=== PATIENT | female | born 1940 | race Caucasian/White ===

== ENCOUNTER → 2016-07-30 | Outpatient (CLI) | payer BC ==
[~2016-07-30] MED LIST: ATEN50TA8 PO; CLTP PO; ESCI1TAB10 PO; HYDC25 PO; PANT40TA PO; SIMV20TA2 PO
[2016-07-30 10:35] LABS: BASO % 0.4 %; BASO ABS # 0.03 K/uL (0-0.2); COMPLETE YES; EOS % 0.6 %; IG% 0.1 %; LYMPH % 26.6 %; LYMPH ABS # 2.06 K/uL (1.2-3.4); MEAN CORPUSCULAR HEMOGLOBIN 29.4 pg (25-34); MEAN CORPUSCULAR HGB CONC 34.1 g/dl (32-36); MEAN PLATELET VOLUME 9.4 fL (7.4-10.4); MONO % 7.9 %; NEUT % 64.4 %; PLATELET COUNT 248 K/uL (130-400); RED BLOOD COUNT 4.77 M/uL (4.2-5.4); WHITE BLOOD COUNT 7.75 K/uL (4.8-10.8)
[2016-07-30 11:05] LABS: ALT/SGPT 18 U/L (12-78); AST/SGOT 11 U/L (15-37); BLOOD UREA NITROGEN 16 mg/dl (7-18); BUN/CREATININE RATIO 24.4 (10-20); CARBON DIOXIDE 32 mmol/L (21-32); CHLORIDE 103 mmol/L (98-107); CREATININE 0.67 mg/dl (0.60-1.20); GLUCOSE 89 mg/dl (70-99); POTASSIUM 3.8 mmol/L (3.5-5.1); SODIUM 140 mmol/L (136-145)
[2016-07-30 11:14] LABS: ALB/GLOB RATIO 1.2 (0.9-2); ALKALINE PHOSPHATASE 80 U/L (45-117); CHOLESTEROL 184 mg/dl (0-200); CHOLESTEROL/HDL RATIO 3.1; HDL CHOLESTEROL 60 mg/dl; LDL CHOLESTEROL CALCULATED 90 mg/dl; TRIGLYCERIDES 168 mg/dl (0-150); VERY LOW DENSITY LIPOPROT CALC 34 mg/dl
== END | disposition home or self-care (01) ==
LOC: C.LAB1850 09:58
PROVIDERS: ATTEND Internal Medicine
DX: E78.5 Hyperlipidemia, unspecified (principal); M25.50 Pain in unspecified joint; Z85.43 Personal history of malignant neoplasm of ovary

== ENCOUNTER → 2016-10-05 | Outpatient (CLI) | payer BC ==
--- NOTE | 2016-10-05 12:30 | MAMMOGRAPHY REPORT ---
BILATERAL DIGITAL SCREENING MAMMOGRAM WITH CAD: 10/05/2016 CLINICAL HISTORY: Routine screening. Patient has no complaints. TECHNIQUE: Bilateral CC and MLO views were obtained. Current study was also evaluated with a Comput er Aided Detection (CAD) system. COMPARISON: Comparison is made to exams dated: 10/03/2015 mammogram, 09/28/2014 mammogram, 09/27/2013 ma mmogram, 09/19/2012 mammogram, 09/17/2011 mammogram, and 09/15/2010 mammogram - [facility]. BREAST COMPOSITION: The tissue of both breasts is heterogeneously dense, which may obscure small mas ses. FINDINGS: A linear scar marker overlies the left upper outer quadrant, there is expected architectura l distortion and [address] in the upper outer middle to posterior left breast, at the site of prior surgery. There is a stable oval circumscribed 3 x 2 cm mass in the lower outer anteri or right breast. A few benign rim calcifications and mild vascular calcifications bilaterally. No n ew suspicious mass, architectural distortion or cluster of microcalcifications is seen. IMPRESSION: ACR BI-RADS CATEGORY 1: NEGATIVE There is no mammographic evidence of malignancy. A 1 year screening mammogram is recommended. The pa tient will receive written notification of the results. Approximately 10% of breast cancers are not detected with mammography. A negative mammographic report should not delay biopsy if a clinically suggestive mass is present. Verena Kumari M.D. ay/:10/05/2016 10:20:57 Assistant Professor: Kirstin Restrepo, [facility] letter sent: Normal 1/2 BI-RADS Code: ACR BI-RADS Category 1: Negative
== END | disposition home or self-care (01) ==
LOC: C.MAMM 08:50
PROVIDERS: ATTEND Internal Medicine
DX: Z12.31 Encounter for screening mammogram for malignant neoplasm of breast (principal)

== ENCOUNTER → 2016-11-23 | Outpatient (CLI) | payer BC ==
[2016-11-23 15:09] LABS: BASO % 0.2 %; BASO ABS # 0.02 K/uL (0-0.2); COMPLETE YES; EOS % 2.8 %; HEMATOCRIT 39.8 % (37-47); IG% 0.2 %; LYMPH % 22.8 %; LYMPH ABS # 1.95 K/uL (1.2-3.4); MEAN CELL VOLUME 86.1 fL (80-100); MEAN CORPUSCULAR HEMOGLOBIN 30.3 pg (25-34); MEAN CORPUSCULAR HGB CONC 35.2 g/dl (32-36); MEAN PLATELET VOLUME 9.6 fL (7.4-10.4); MONO % 7.5 %; NEUT % 66.5 %; PLATELET COUNT 284 K/uL (130-400); RED BLOOD COUNT 4.62 M/uL (4.2-5.4); WHITE BLOOD COUNT 8.57 K/uL (4.8-10.8)
[2016-11-23 15:21] LABS: ALT/SGPT 18 U/L (12-78); BLOOD UREA NITROGEN 16 mg/dl (7-18); BUN/CREATININE RATIO 22.2 (10-20); C-REACTIVE PROTEIN < 0.29 mg/dl (0-0.29); CALCIUM 9.7 mg/dl (8.5-10.1); CARBON DIOXIDE 27 mmol/L (21-32); CHLORIDE 102 mmol/L (98-107); CREATININE 0.72 mg/dl (0.60-1.20); GLUCOSE 105 mg/dl (70-99); POTASSIUM 3.5 mmol/L (3.5-5.1); SODIUM 137 mmol/L (136-145)
[2016-11-23 15:24] LABS: ALB/GLOB RATIO 1.1 (0.9-2); ALKALINE PHOSPHATASE 77 U/L (45-117); AST/SGOT 16 U/L (15-37)
[2016-11-23 17:49] LABS: LYME DISEASE AB IGG NEG (NEG)
[2016-11-23 17:51] LABS: LYME DISEASE AB IGM NEG (NEG)
== END | disposition home or self-care (01) ==
LOC: C.LAB1850 14:04
PROVIDERS: ATTEND Internal Medicine
DX: M25.551 Pain in right hip (principal); R53.83 Other fatigue; M25.552 Pain in left hip

== ENCOUNTER → 2017-01-26 | Outpatient (CLI) | payer BC ==
[2017-01-26 16:35] LABS: HEMATOCRIT 39.1 % (37-47); MEAN CELL VOLUME 87.9 fL (80-100); MEAN CORPUSCULAR HEMOGLOBIN 29.7 pg (25-34); MEAN CORPUSCULAR HGB CONC 33.8 g/dl (32-36); PLATELET COUNT 311 K/uL (130-400); RED BLOOD COUNT 4.45 M/uL (4.2-5.4); WHITE BLOOD COUNT 7.38 K/uL (4.8-10.8)
[2017-01-26 16:57] LABS: BLOOD UREA NITROGEN 14 mg/dl (7-18); BUN/CREATININE RATIO 23.1 (10-20); CARBON DIOXIDE 28 mmol/L (21-32); CHLORIDE 101 mmol/L (98-107); GLUCOSE 103 mg/dl (70-99); MAGNESIUM 1.5 mg/dl (1.8-2.4); POTASSIUM 3.6 mmol/L (3.5-5.1); SODIUM 135 mmol/L (136-145)
== END | disposition home or self-care (01) ==
LOC: C.LAB1850 15:57
PROVIDERS: ATTEND Internal Medicine
DX: T14.8XXA Other injury of unspecified body region, initial encounter (principal); V89.2XXA Person injured in unspecified motor-vehicle accident, traffic, initial encounter

== ENCOUNTER → 2017-04-06 | Outpatient (CLI) | payer BC ==
--- NOTE | 2017-04-06 11:33 | DIAGNOSTIC IMAGING REPORT ---
PELVIS/BILATERAL HIP 2 VIEWS CLINICAL HISTORY: 77 years-old Female presenting with M25.551 M25.552 M54.5 R26.9. TECHNIQUE: Single frontal view of the pelvis and frontal and frog-leg lateral views of the bilateral hips were obtained. COMPARISON: None. FINDINGS: Sacroiliac joints and pubic symphysis congruent. Osteopenia likely present. Arcuate lines intact. Degenerative changes of the lower lumbar spine. Joint space loss, osteophytosis, and subchondral sclerosis and cystic change in the right humeral head are evidence of osteoarthritis of the right hip. Subchondral sclerosis and cystic change may also be present in the acetabulum. Left hip grossly normal appearing. No femoral neck fracture. The bony pelvis is intact. Surgical clips noted in the left hemipelvis. IMPRESSION: 1. Advanced degenerative changes of the right hip joint as above. No acute osseous injury. 2. Possible osteopenia. Electronically signed by: Georges Thompson M.D. 04/06/2017 11:31 AM Dictated Date/Time: 04/06/2017 11:29 AM
[2017-04-06 12:08] LABS: BASO % 0.3 %; BASO ABS # 0.03 K/uL (0-0.2); EOS % 0.7 %; EOS ABS # 0.06 K/uL (0-0.5); HEMOGLOBIN 15.3 g/dL (12.0-16.0); IG# 0.02 K/uL (0.00-0.02); LYMPH % 18.6 %; LYMPH ABS # 1.66 K/uL (1.2-3.4); MEAN CELL VOLUME 87.9 fL (80-100); MEAN CORPUSCULAR HEMOGLOBIN 29.9 pg (25-34); MONO ABS # 0.98 K/uL (0.11-0.59); NEUT % 69.2 %; NEUT ABS # 6.16 K/uL (1.4-6.5); PLATELET COUNT 265 K/uL (130-400); RED CELL DISTRIBUTION WIDTH CV 12.8 % (11.5-14.5); RED CELL DISTRIBUTION WIDTH SD 41.6 fL (36.4-46.3); WHITE BLOOD COUNT 8.91 K/uL (4.8-10.8)
[2017-04-06 12:32] LABS: ALBUMIN 3.8 gm/dl (3.4-5.0); ALT/SGPT 23 U/L (12-78); AST/SGOT 11 U/L (15-37); BLOOD UREA NITROGEN 15 mg/dl (7-18); CALCIUM 9.3 mg/dl (8.5-10.1); CARBON DIOXIDE 29 mmol/L (21-32); CREATININE 0.62 mg/dl (0.60-1.20); GLUCOSE 92 mg/dl (70-99); POTASSIUM 3.7 mmol/L (3.5-5.1); SODIUM 135 mmol/L (136-145)
[2017-04-06 12:37] LABS: ALKALINE PHOSPHATASE 92 U/L (45-117); CHOLESTEROL 202 mg/dl (0-200); LDL CHOLESTEROL CALCULATED 89 mg/dl; TOTAL PROTEIN 7.7 gm/dl (6.4-8.2); TRANSFERRIN 208 mg/dl (200-360)
[2017-04-08 21:38] LABS: CA 125 **TC 29256X 13 U/ML (<35)
== END | disposition home or self-care (01) ==
LOC: C.LAB1850 09:40
PROVIDERS: ATTEND Internal Medicine Rheumatology
DX: M25.551 Pain in right hip (principal); M25.552 Pain in left hip; M54.5 Low back pain; G89.29 Other chronic pain; R26.9 Unspecified abnormalities of gait and mobility; E78.5 Hyperlipidemia, unspecified; I10 Essential (primary) hypertension; Z85.43 Personal history of malignant neoplasm of ovary; M89.8X5 Other specified disorders of bone, thigh

== ENCOUNTER → 2017-04-09 | Outpatient (CLI) | payer BC ==
--- NOTE | 2017-04-09 12:25 | DIAGNOSTIC IMAGING REPORT ---
BONE SCAN WHOLE BODY CLINICAL HISTORY: R26.9 Gait [id number] Chronic low back painM25.551 bilateral hip pain COMPARISON STUDY: Conventional radiographic evaluation the hips dated to 618 the patient was injected with 26.6 mCi of technetium 99m MDP. Three-hour delayed whole body images were acquired. FINDINGS: There is a photopenic defect within the left knee consistent with prior surgery. There is increased activity within the proximal right shoulder. This may relate to a prior shoulder arthroplasty. There are foci of increased activity within the wrists, consistent with degenerative/arthritic etiology. There is a focus of increased activity within the right knee likely degenerative. There is mild increased activity within the left hip and moderate increased activity at the right hip. The findings are felt to be on a degenerative basis given the recent conventional radiographic findings. Heterogeneous activity within the lower lumbar spine is also likely degenerative/arthritic. There are foci of increased activity within the left second fifth and sixth costochondral junctions. There are foci of increased activity within the right third and fourth costochondral junctions. There are foci of increased activity within the left anterior third and fourth ribs. The distribution of this rib activity favors a posttraumatic etiology. There is intense focus of increased activity at the level of the sternomanubrial junction. Although nonspecific, this may be post traumatic. IMPRESSION: 1. Multiple foci of abnormal increased activity, the distribution of which favors a combination of degenerative and posttraumatic etiologies. 2. There is a nonspecific focus of intense increased activity involving the sternomanubrial junction. Correlation with any history of trauma to this region as well as correlation with clinical symptoms is recommended. If clinically, this is not consistent with a traumatic etiology, then CT scanning should be considered in follow-up. Electronically signed by: Sreedhar Mckoy M.D. 04/09/2017 12:24 PM Dictated Date/Time: 04/09/2017 12:18 PM
== END | disposition home or self-care (01) ==
LOC: C.NUCL 07:44
PROVIDERS: ATTEND Internal Medicine Rheumatology
DX: R26.9 Unspecified abnormalities of gait and mobility (principal); M54.5 Low back pain; M25.551 Pain in right hip; M25.552 Pain in left hip

== ENCOUNTER → 2017-05-03 | Outpatient (CLI) | payer BC ==
--- NOTE | 2017-05-03 08:22 | DIAGNOSTIC IMAGING REPORT ---
MRI LUMBAR SPINE W/O CONTRAST CLINICAL HISTORY: Back pain with lumbar radiculopathy. TECHNIQUE: Sagittal and axial T1, T2 and STIR images were obtained. COMPARISON STUDY: No previous studies for comparison. OBSERVATIONS: The vertebral bodies and posterior elements appear intact. There is no abnormal bony signal present to suggest a marrow replacement process. L1-2: There is a minimal circumferential disc bulge. There is no spinal or foraminal stenosis L2-3: No disc protrusions or extrusions. No evidence of spinal canal or neural foraminal compromise. L3-4: There is a mild circumferential disc bulge. There is mild facet joint arthropathy. There is no significant spinal or foraminal stenosis. L4-5: There is a grade 1 spondylolisthesis of L4 on L5. There is moderate facet joint arthropathy. There is minor left-sided foraminal narrowing. There is no significant spinal stenosis. L5-S1: No disc protrusions or extrusions. No evidence of spinal canal or neural foraminal compromise. The conus medullaris and cauda equina appear normal. Multiple sacral Tarlov cysts are visualized IMPRESSION: 1. Grade 1 spondylolisthesis of L4 and L5 2. Mild left-sided foraminal narrowing at the L4-5 level 3. Multiple sacral Tarlov cysts 4. Multilevel facet joint arthropathy Electronically signed by: Sreedhar Mckoy M.D. 05/03/2017 8:20 AM Dictated Date/Time: 05/03/2017 8:17 AM
== END | disposition home or self-care (01) ==
LOC: C.MRI 07:38
PROVIDERS: ATTEND Orthopaedic Surgery Orthopaedic Surgery of the Spine
DX: M48.062 Spinal stenosis, lumbar region with neurogenic claudication (principal); M43.16 Spondylolisthesis, lumbar region

== ENCOUNTER → 2017-07-15 | Outpatient (CLI) | payer BC ==
--- NOTE | 2017-07-15 12:24 | DIAGNOSTIC IMAGING REPORT ---
Jabier SAEED SHLDR,HIP,KNEE CLINICAL HISTORY: 77 years-old Female presenting with LT HIP DJD. COMPARISON: 04/06/2017. PROCEDURE: The risks, benefits, and alternatives to the procedure were discussed with the patient. Written informed consent was obtained. The patient was placed supine on the fluoroscopy table, and a left hip injection was performed under fluoroscopic guidance. The area was prepped and draped in the usual sterile fashion. The skin and soft tissues anesthetized with local 1% lidocaine. The left hip joint was accessed utilizing a 22-gauge needle. Approximately 1 mL of Optiray 300 was injected into the joint space under fluoroscopic guidance to confirm intra-articular positioning. Subsequently, a 10 mL mixture containing 8 mL of 0.5% bupivacaine and 2 mL of betamethasone was injected into the joint. The procedure was well tolerated without immediate complication. Fluoroscopy dosage (mGy): Not available. Fluoroscopy time: 15 seconds. Number of fluoroscopic spot images: 0. IMPRESSION: Successful injection of the left hip under fluoroscopic guidance. Electronically signed by: Georges Thompson M.D. 07/15/2017 12:23 PM Dictated Date/Time: 07/15/2017 12:22 PM
== END | disposition home or self-care (01) ==
LOC: C.RADBC 10:46
PROVIDERS: ATTEND Orthopaedic Surgery Sports Medicine
DX: M16.12 Unilateral primary osteoarthritis, left hip (principal)

== ENCOUNTER → 2017-09-23 | Outpatient (CLI) | payer BC ==
[~2017-09-23] MED LIST changes: +CARB1SOL OPB; +CLB/200 PO; -CLTP PO; -HYDC25 PO; +HYDR12.55 PO; -SIMV20TA2 PO; +VITAMIN B12 PO; +VITAMIN D PO
--- NOTE | 2017-09-23 11:17 | DIAGNOSTIC IMAGING REPORT ---
CHEST 2 VIEWS ROUTINE CLINICAL HISTORY: PAT preoperative evaluation COMPARISON STUDY: 08/11/2013 FINDINGS: The bones soft tissues and hemidiaphragms are normal. The cardiomediastinal silhouette is normal. The lungs are clear. The pulmonary vasculature is normal. IMPRESSION: Negative chest. The above report was generated using voice recognition software. It may contain grammatical, syntax or spelling errors. Electronically signed by: Michael Stokes M.D. 09/23/2017 11:15 AM Dictated Date/Time: 09/23/2017 11:15 AM
[2017-09-23 11:23] LABS: BASO % 0.5 %; BASO ABS # 0.03 K/uL (0-0.2); EOS % 0.8 %; EOS ABS # 0.05 K/uL (0-0.5); HEMATOCRIT 40.8 % (37-47); HEMOGLOBIN 13.8 g/dL (12.0-16.0); IG# 0.01 K/uL (0.00-0.02); LYMPH % 27.2 %; LYMPH ABS # 1.61 K/uL (1.2-3.4); MEAN CELL VOLUME 86.8 fL (80-100); MEAN CORPUSCULAR HEMOGLOBIN 29.4 pg (25-34); MEAN CORPUSCULAR HGB CONC 33.8 g/dl (32-36); MEAN PLATELET VOLUME 9.6 fL (7.4-10.4); MONO % 9.5 %; MONO ABS # 0.56 K/uL (0.11-0.59); NEUT % 61.8 %; NEUT ABS # 3.65 K/uL (1.4-6.5); PLATELET COUNT 266 K/uL (130-400); RED CELL DISTRIBUTION WIDTH CV 12.4 % (11.5-14.5); RED CELL DISTRIBUTION WIDTH SD 39.9 fL (36.4-46.3); WHITE BLOOD COUNT 5.91 K/uL (4.8-10.8)
[2017-09-23 11:25] LABS: BLOOD UREA NITROGEN 16 mg/dl (7-18); CARBON DIOXIDE 27 mmol/L (21-32); CREATININE 0.65 mg/dl (0.60-1.20); GLUCOSE 95 mg/dl (70-99); POTASSIUM 3.9 mmol/L (3.5-5.1); SODIUM 135 mmol/L (136-145)
[2017-09-23 11:30] LABS: PTT PATIENT 27.5 SECONDS (21.0-31.0)
== END | disposition home or self-care (01) ==
LOC: C.CPL 10:03
PROVIDERS: ATTEND Orthopaedic Surgery Sports Medicine
DX: Z01.810 Encounter for preprocedural cardiovascular examination (principal); Z01.811 Encounter for preprocedural respiratory examination; Z01.812 Encounter for preprocedural laboratory examination

== ENCOUNTER → 2017-10-06 | Outpatient (CLI) | payer BC ==
[~2017-10-06] MED LIST changes: +ACET-24 PO; +ASPI-461 PO; +ULT50X PO
--- NOTE | 2017-10-06 13:38 | MAMMOGRAPHY REPORT ---
BILATERAL DIGITAL SCREENING MAMMOGRAM TOMOSYNTHESIS WITH CAD: 10/06/2017 CLINICAL HISTORY: Routine screening. Patient has no complaints. TECHNIQUE: The study was acquired using full field digital technology and interpreted from soft copy. Breast tomosynthesis in addition to standard 2D mammography was performed. Current study was also ev aluated with a Computer Aided Detection (CAD) system. COMPARISON: Comparison is made to exams dated: 10/05/2016 mammogram, 10/03/2015 mammogram, 09/28/2014 moris mogram, 09/27/2013 mammogram, 09/19/2012 mammogram, and 09/15/2010 mammogram - [facility]. BREAST COMPOSITION: The tissue of both breasts is heterogeneously dense, which may obscure small mass es. FINDINGS: There is expected architectural distortion and 2 surgical clips in the upper outer quadrant of the left breast, at the site of prior surgery. There is a stable benign circumscribed oval 3 cm mass in the 6:00 anterior right breast. Mild vascular calcifications bilaterally. No new suspicious mass, architectural distortion or cluster of microcalcifications is seen. IMPRESSION: ACR BI-RADS CATEGORY 1: NEGATIVE There is no mammographic evidence of malignancy. A 1 year screening mammogram is recommended.( 019) The patient will receive written notification of the results. Some breast cancers are not detected with mammography. A negative mammographic report should not marcial y biopsy if a clinically suggestive mass is present. Verena Kumari M.D. ay/:10/06/2017 12:03:05 Pre Planning Advisor: RT Trish(Marie)(M), [facility] letter sent: Normal 1/2 BI-RADS Code: ACR BI-RADS Category 1: Negative
== END | disposition home or self-care (01) ==
LOC: C.MAMM 10:36
PROVIDERS: ATTEND Internal Medicine
DX: Z12.31 Encounter for screening mammogram for malignant neoplasm of breast (principal)

== ENCOUNTER 2018-06-07 04:45 | Inpatient (IN) ==
--- NOTE | 2018-05-19 16:01 | PAT Medication Instructions ---
Medication Instructions Date of Service May 19, 2018 Home Medications Cbd Oil 1 dose PO DAILY PRN Zocor 1 dose PO QPM acetaminophen [Tylenol Arthritis 650 mg PO Q12H atenolol 25 mg PO QAM cholecalciferol (vitamin D3) 1,000 unit PO QPM cyanocobalamin (vitamin B-12) 1,000 mcg PO QAM escitalopram oxalate [Lexapro] 10 mg PO QPM hydrochlorothiazide 12.5 mg PO QAM magnesium 500 mg PO QPM metronidazole [Flagyl] 500 mg PO TID pantoprazole [Protonix] 20 mg PO QAM Continue as directed metronidazole [Flagyl] 500 mg PO TID DO NOT take the morning of surgery Cbd Oil 1 dose PO DAILY PRN cyanocobalamin (vitamin B-12) 1,000 mcg PO QAM hydrochlorothiazide 12.5 mg PO QAM magnesium 500 mg PO QPM Take morning of surgery With a small sip of water, OTHERWISE NOTHING TO EAT OR DRINK AFTER MIDNIGHT: acetaminophen [Tylenol Arthritis 650 mg PO Q12H (okay to take up to 4 hours prior to surgery if needed) atenolol 25 mg PO QAM pantoprazole [Protonix] 20 mg PO QAM Take evening before surgery Zocor 1 dose PO QPM acetaminophen [Tylenol Arthritis 650 mg PO Q12H cholecalciferol (vitamin D3) 1,000 unit PO QPM escitalopram oxalate [Lexapro] 10 mg PO QPM Other Notes If you have any questions please call us at [phone] or [phone] or [phone] or [phone]
--- NOTE | 2018-05-20 14:08 | Anesthesiology Consultation ---
Date of Service May 20, 2018 Assessment & Plan (1) Encounter for pre-operative examination: - S/P Right AVERY= 10/12/17= SAB x 1 attempt at [facility] Chart Review Chart Review: Acceptable Risk for Surgery and Patient seen in Pre Admission Testing Teaching & Discussion Pre-Anesthesia Teaching/Discussion Notes: Instructed NPO after midnight before surgery,except medications with 15 cc of water. Medication instructions provided according to the PAT guidelines. History Surgery Operation Date: 06/07/18 08:50 Proposed Procedures p Left Total Hip Arthroplasty - Ruddy Plunkett MD Height/Weight Height: 5 ft Weight: 71.4 kg Allergies Allergy/AdvReac Type Severity Reaction Status Date / Time adhesive Allergy Mild SKIN Verified 05/16/18 14:37 IRRITATION NSAIDS (Non-Steroidal Allergy Mild DYSPEPSIA Verified 05/20/18 14:03 Anti-Inflamma Sulfa (Sulfonamide Allergy Unknown HIVES Verified 05/16/18 14:37 Antibiotics) diphenhydramine AdvReac Unknown ANXIETY, Verified 05/20/18 14:03 HYPER-ACTIVITY garlic AdvReac Unknown RAW Verified 05/20/18 14:03 GARLIC/RAW ONIONS- DYSPEPSIA morphine AdvReac Unknown DELIRIUM Verified 05/16/18 14:37 Medications Home Medications Medication Instructions Recorded Confirmed Last Taken Cbd Oil 1 dose PO DAILY PRN 05/16/18 05/16/18 Unknown Zocor 1 dose PO QPM 05/16/18 05/16/18 Unknown acetaminophen [Tylenol Arthritis 650 mg PO Q12H 05/16/18 05/16/18 Unknown Pain] atenolol 25 mg PO QAM 05/16/18 05/16/18 Unknown cholecalciferol (vitamin D3) 1,000 unit PO QPM 05/16/18 05/16/18 Unknown [Vitamin D3] cyanocobalamin (vitamin B-12) 1,000 mcg PO QAM 05/16/18 05/16/18 Unknown [Vitamin B-12] escitalopram oxalate [Lexapro] 10 mg PO QPM 05/16/18 05/16/18 Unknown hydrochlorothiazide 12.5 mg PO QAM 05/16/18 05/16/18 Unknown magnesium 500 mg PO QPM 05/16/18 05/16/18 Unknown metronidazole [Flagyl] 500 mg PO TID 05/16/18 05/16/18 Unknown pantoprazole [Protonix] 20 mg PO QAM 05/16/18 05/16/18 Unknown Past Medical History Medical History Anxiety and depression Congenital foot deformity RIGHT; USES BRACE GERD (gastroesophageal reflux disease) Hyperlipidemia Hypertension Malignant neoplasm of ovary S/P SHAHIDA BSO + CHEMO (10+ YEARS AGO) Osteoarthritis Scoliosis Spinal stenosis Past Family History Family History Grandmother (Paternal) Family history of diabetes mellitus Aunt Family history of diabetes mellitus Past Surgical History Surgical History History of colonoscopy History of esophagogastroduodenoscopy (EGD) History of left knee replacement History of right hip replacement History of tooth extraction History of total abdominal hysterectomy and bilateral salpingo-oophorectomy History of umbilical hernia repair Past Anesthesia History No Family Hx of Anesthesia Complications and Other Per records, post-op delirium (2007) resolved with medicine discontinuation (?morphine). History of PONV No Motion Sickness Screening History of Motion Sickness: No Social History Smoking Status: Former smoker Do You Dip or Chew Tobacco: No Smoking End Date: QUIT 50 YEARS AGO; SOCIAL USE PRIOR TO QUITTING Hx Alcohol Use: Yes Alcohol type: beer, wine and hard liquor alcohol intake frequency: a few times a week Hx Substance Use: No substance use type: does not use Exercise / Class Metabolic Activity II 4-5 Yardwork/Stairs/Walk up hill (USES CANE PRN) Review of Systems Patient denies chest pain, shortness of breath, cough, wheezing, palpitations. Physical Exam Vital Signs VITALS BP 118/73 P 59 TEMP 97.7 SP02 95%RA RESP 18 PHYSICAL Full neck and c-spine range of motion. Full TMJ range of motion. TMD 3 finger breaths Mallampati Score 3 Dentition: upper partial Lungs: clear throughout to auscultation Cardiac: regular rate and rhythm, no murmurs noted Spine: normal Carotid arteries: negative bruit Extremities: no edema Testing Electrocardiogram Date: 09/23/17 Findings: + NSR @ (60) Chest X-Ray Date: 09/23/17 Findings: + NAD Laboratory Results Blood Type B Negative 05/20/18 14:25 Antibody Screen NEGATIVE 05/20/18 14:25 PT 10.9 Seconds (9.0-12.0) 05/20/18 14:25 INR 1.1 (0.9-1.1) 05/20/18 14:25 APTT 27.4 Seconds (21.0-31.0) 05/20/18 14:25 05/09/18 WBC 7.34 H/H 14.3/42.1 PLATELETS 284 SODIUM 136 POTASSIUM 3.7 CHLORIDE 100 CO2 29 BUN 12 CREATININE 0.6 GLUCOSE 88
[2018-05-20 15:48] LABS: INR 1.1 (0.9-1.1); Partial Thromboplastin Time 27.4 Seconds (21.0-31.0); Prothrombin Time 10.9 Seconds (9.0-12.0)
--- NOTE | 2018-05-31 22:27 | History and Physical Report ---
DATE OF ADMISSION: 06/07/2018 CHIEF COMPLAINT: Left hip pain. HISTORY OF PRESENT ILLNESS: The patient is an 78-year-old female status post a right hip replacement as well as left knee replacement done by myself in the past who presents now for surgical treatment of her left hip. She has a known history of hip arthritis on this side. She has been through extensive conservative treatment in the past including various medicines as well as an intraarticular injection, which provided some temporary relief. The more she walks, the more it hurts. She describes it gotten significantly worse over the past several months. She has difficulty putting her shoes and socks on. She has nighttime pain. Pain is mostly groin and thigh related. She now would like to proceed with surgical treatment. PAST MEDICAL HISTORY: 1. Gastroesophageal reflux disease. 2. Hiatal hernia. 3. Back pain/sciatica. 4. Mild obesity. 5. Ovarian cancer status post oophorectomy. 6. Congenital anomaly of right lower extremity. PAST SURGICAL HISTORY: 1. Ovarian resection. 2. Rotator cuff repair. 3. Left knee replacement done 07/26/2009. 4. Right total hip replacement done on 10/12/2017. ALLERGIES: SULFA AND BENADRYL. SULFA CAUSES SWELLING. MORPHINE CAUSES NAUSEA AND GI UPSET. DOES NOT DO WELL WITH NSAIDS EITHER. CURRENT MEDICINES: Include: 1. Flagyl for a recent parasite infection. 2. Atenolol 50 mg a day. 3. Vitamin D. 4. Pantoprazole 20 mg. 5. Zyloprim 10 mg. 6. Vitamin B12. 7. Tylenol. 8. Hydrochlorothiazide 12.5 mg a day. SOCIAL HISTORY: An 78-year-old female. She is . She lives in [place]. Five drinks per week. Does not smoke. FAMILY HISTORY: Noncontributory. REVIEW OF HISTORY: Negative for diabetes, neurologic problems, vascular problems or bleeding disorders. No history of DVT or PE. She has recently been treated for this parasite infection with Bactrim, but now off. Seems to be resolved. She does have a congenital anomaly of her right leg. PHYSICAL EXAMINATION: GENERAL: Reveals a pleasant elderly female who looks to be in good health. HEENT: Benign. NECK: Supple. No lymphadenopathy. LUNGS: Clear to auscultation. HEART: Regular rate and rhythm. ABDOMEN: Soft, nontender, nondistended. EXTREMITIES: Grossly neurovascularly intact except as follows: Examination of left hip and leg reveals patient walks with the use of a cane. She is just a little bit long on the left side compared to the right. No knee effusion, well-healed incision over the front of her knee. She does have pain with any type of hip motion. She can internally rotate to neutral, external rotation at 20 degrees. Negative straight leg raise. X-RAYS: X-rays of the left hip were reviewed. Shows advanced left hip DJD. She has got complete loss of her superior joint space. This has progressed significantly over the past 6 months since her last films. ASSESSMENT: An 78-year-old female status post a right hip replacement and left knee replacement with progressive left hip pain consistent with progressive arthritis. She has failed conservative treatment and would like to proceed with left hip replacement. PLAN: We will take her to the operating room and do a left total hip replacement. The risks and benefits of this procedure were explained to the patient including but not limited to DVT, PE, , infection, neurological injury, vascular injury, bleeding problem, pain, limited range of motion, stiffness, failure to relieve symptoms, incomplete relief of symptoms, need for further surgery in future, fracture, leg length inequality, nerve palsy, dislocation, etc. The patient understands and desires to proceed and informed consent has been obtained. We will do the best we can to try and equalize her leg lengths. She is actually a little long on this side and we will do the best we can to shorten it a little bit if possible. Stability is most important issue. As far as discharge plans, she should be able to be discharged to home with [facility].
[2018-06-07] MEDS ORDERED: ACETAMINOPHEN 500 MG TAB PO SCH (06:00)
[2018-06-07] MEDS ORDERED: LR 60ML/HR IV SCH (06:00)
[2018-06-07] MEDS ORDERED: CEFAZOLIN 2000MG 2,000 MG/15 ML SYR IV SCH (06:00)
[2018-06-07] MEDS ORDERED: TRANEXAMIC ACID 1,000 MG **IV Pre-op IV SCH (06:00)
[2018-06-07] MEDS ORDERED: FAMOTIDINE 20 MG TAB PO SCH (06:00)
[2018-06-07] MEDS ORDERED: METOCLOPRAMIDE HCL 10 MG TABLET PO SCH (06:00)
[2018-06-07] MEDS ORDERED: LR 500ML BOLUS, THEN 15ML/HR IV SCH (06:00)
[2018-06-07] MEDS ORDERED: GABAPENTIN 300 MG PO SCH (06:00)
[2018-06-07] MEDS ORDERED: BUPIVACAINE 0.5 % 5 MG/1 ML PF 10ML VIAL ONE (06:31)
[2018-06-07] MEDS ORDERED: BACITRACIN INJ 50,000 UNIT VIAL ONE (06:37)
[2018-06-07] MEDS ORDERED: BUPIVACAINE/EPINEPHRINE 0.5% MPF 1:200,000 30 ML VIAL ONE (06:37)
[2018-06-07] MEDS ORDERED: MIDAZOLAM HCL 1 MG/ML 2ML VIAL ONE (06:42)
[2018-06-07] MEDS ORDERED: fentaNYL citrate 100 MCG/2 ML VIAL ONE (06:42)
[2018-06-07] MEDS ORDERED: MoRPHine SULFATE PF 1 MG/ML 10 ML AMP/VIAL ONE (06:50)
--- NOTE | 2018-06-07 06:51 | History & Physical Bridge Note ---
Date of Service June 07, 2018 History & Physical Bridge Note I have examined the patient, reviewed the History & Physical and in the interval since the performance of the History & Physical I have noted the following changes of clinical significance: no changes noted
[2018-06-07] MEDS ORDERED: NALBUPHINE HCL INJ 10 MG/ML AMP IV PRN (07:07)
[2018-06-07] MEDS ORDERED: LACTATED RINGER'S 500 ML IV PRN (07:07)
[2018-06-07] MEDS ORDERED: NALOXONE HCL 1 MG in SODIUM CHLORIDE 0.9% 1000ML 1,000 ML IV PRN (07:07)
[2018-06-07] MEDS ORDERED: NALOXONE HCL 0.08 MG in SYRINGE 1.8 ML IV PRN (07:07)
[2018-06-07] MEDS ORDERED: ONDANSETRON INJ 2 MG/ML 2 ML VIAL IV PRN ×2 (07:07→09:39)
[2018-06-07] MEDS ORDERED: MEPERIDINE HCL 25 MG/ML CARP IV PRN (07:07)
[2018-06-07] MEDS ORDERED: HYDROmorphone INJ 0.5 MG/0.5 ML SYR IV PRN ×2 (07:07→09:39)
[2018-06-07] MEDS ORDERED: NALOXONE HCL 0.4 MG/1 ML VIAL/CARP IV PRN ×2 (07:07→09:39)
[2018-06-07] MEDS ORDERED: ePHEDrine sulfate 50 MG/ML AMP IV PRN (07:07)
[2018-06-07] MEDS ORDERED: SODIUM CHLORIDE 0.9% 1000ML 1,000 ML IV SCH (07:15)
[2018-06-07] MEDS ORDERED: NO NARCOTICS OR SEDATIVES SCH (07:15)
[2018-06-07] MEDS ORDERED: DC INTRASPINAL MORPHINE SCH (07:15)
[2018-06-07] MEDS ORDERED: PHENYLEPHRINE 100MCG/ML 5ML SYR ONE (07:19)
[2018-06-07] MEDS ORDERED: PROPOFOL IV EMULSION 10 MG/ML 20 ML VIAL IV ONE (07:19)
[2018-06-07] MEDS ORDERED: ePHEDrine sulfate 50 MG/ML SYR ONE (07:19)
[2018-06-07] MEDS ORDERED: LIDOCAINE HCL 2% 2 ML VIAL/AMP(20MG/ML) INFIL ONE (07:19)
--- NOTE | 2018-06-07 08:24 | Post Operative Brief Note ---
Immediate Post Op Note v1 Date of Surgery June 07, 2018 Pre & Post Diagnosis Operation Date: 06/07/18 07:00 Pre-Op Diagnosis: Left Hip Advanced Degenerative Joint Disease Post-Op Diagnosis: Left Hip Advanced Degenerative Joint Disease Procedure Operation Date: 06/07/18 07:00 Actual Procedures p Left Total Hip Arthroplasty--Uncemented(Left) - Ruddy Plunkett MD Surgeon Ruddy Plunkett MD Centerless Grinding Machine Adjuster Juvenal, PAC Estimated Blood Loss 200 Findings Consistent with Post-Op Diagnosis Fluids 1400 cc Specimens Left Femoral Head Drains Gómez Catheter (A 16 Bel[place]ian gómez catheter was inserted by Luz Jaramillo RN, without difficulty, clear yellow urine obtained, output to be monitored by Vida ernandez.) Anesthesia Type Spinal MAC Complications none Disposition Accompanied Patient To Recovery: Yes Disposition: Recovery Room
--- NOTE | 2018-06-07 08:57 | XRay Report ---
XR hip 1V LT w pelvis CLINICAL HISTORY: IN PACU - A/P PELVIS and LATERAL HIP postoperative COMPARISON: 10/12/2017 DISCUSSION: Interval placement of a total left hip arthroplasty. Good contact between prosthetic and the Bone. Expected soft tissue postoperative change. Pre-existing total right hip arthroplasty. Expected soft tissue postoperative change IMPRESSION: Anatomic alignment post total left hip arthroplasty. The above report was generated using voice recognition software. It may contain grammatical, syntax or spelling errors. Electronically signed by: Michael Stokes M.D. 06/07/2018 8:56 AM
--- NOTE | 2018-06-07 09:09 | Operative Report ---
DATE OF OPERATION: 06/07/2018 SURGEON: Ruddy Plunkett MD MARBLE WORKER: LORE Leal PREOPERATIVE DIAGNOSIS: Left hip degenerative joint disease. POSTOPERATIVE DIAGNOSIS: Left hip degenerative joint disease. PROCEDURE PERFORMED: Left uncemented ceramic on highly cross-linked polyethylene total hip arthroplasty. COMPLICATIONS: None. ESTIMATED BLOOD LOSS: 200 mL. FLUID REPLACEMENT: 1400 mL crystalloid fluid replacement. ANESTHESIA: Spinal. DRAINS: None. SPECIMENS: Left femoral head sent for pathology. OPERATIVE INDICATIONS: The patient is an 78-year-old very active female who has had a long history of joint problems. She had a right hip replacement done about 8 months ago. Over the past 6 months, she has developed marked increased pain and discomfort in her left hip which showed progressive left hip arthritis. She failed conservative treatment and elected to proceed with operative intervention. OPERATIVE IMPLANTS: Operative implants consisted of: 1. A Biomet G7 size 50 mm acetabular shell. 2. 6.5 cancellous acetabular screws, 1 at 35 mm in length and 1 at 20 mm in length. 3. An apex hole eliminator. 4. A highly cross-linked polyethylene liner with a 32 mm inner diameter and a 50 mm outer diameter. 5. DePuy Corail size 11 KLA femoral stem. 6. +1/32 mm ceramic articular ball. OPERATIVE PROCEDURE: The patient was taken to the operating room, identified and placed on the operating room table in the supine position. All contact areas were appropriately padded. IV antibiotics were provided by anesthesia team. A spinal anesthetic had been implemented in the holding area. Olmos catheter was placed in sterile fashion. The patient was then placed in the right lateral decubitus position. An axillary roll was placed. [facility] used for positioning. Left hip and leg were then prepped and draped in the usual sterile fashion. A posterolateral approach to the left hip was then performed through a curvilinear incision centered over the greater trochanter. Sharp dissection was carried out through subcutaneous tissue down to the level of the IT band and gluteal fascia. The IT band and gluteal fascia were incised longitudinally in line with skin incision. The underlying greater trochanteric bursa was excised. The piriformis and external rotators were tagged and taken off the posterior aspect of the hip joint capsule. Great care was taken throughout the procedure to protect the sciatic nerve at all times. Posterior capsulotomy was then performed leaving a large flap for later repair. Hip was internally rotated and dislocated. Femoral neck osteotomy cut was made with the final cut about 5 mm above the lesser trochanter. 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 The femoral head was removed and sent for pathology. The femur was retracted anteriorly. Attention was then drawn to the acetabulum. The acetabular labrum was excised. The pulvinar fat was excised. Sequential reaming of the acetabulum was then performed beginning with a size 43 and progressing up to 49. A 50 mm Biomet G7 acetabular shell was then placed in about 40 degrees of lateral opening and 20 degrees of anteversion. It was fixed with two 6.5 cancellous acetabular screws. A trial liner was placed. Attention was then drawn to the femur. The proximal femur was entered with a [employer] cutter followed by canal finder. I began broaching the knee and progressed up to 11. We got excellent fit at 11. A calcar reamer was used to smoothen off the calcar. I then trialed the hip. We were hoping to shorten this leg a little bit. We used a KLA stem in order to maximize offset and recreate soft tissue tension. I used a +1 articular ball and the hip was fully stable in full extension and external rotation and flexion to 90 degrees, internal rotation to 50+ degrees. We elected to place these implants. All trial implants were removed. An apex hole eliminator was placed. Highly cross-linked polyethylene liner was placed. A DePuy Corail size 11 KLA femoral stem was impacted in position. A +1/32 mm ceramic articular ball was placed. Hip was located and once again found to be stable. Attention was then drawn toward closing. The wound was irrigated with copious amounts of pulsatile lavage solution. I injected locally with 60 mL of 0.5% Marcaine with epinephrine. The posterior capsule and external rotators were repaired through drill holes in the posterior trochanter with #2 Ti-Cron suture. The IT band and gluteal fascia were then closed in #1 PDS suture in running fashion. The subcutaneous tissue was then closed with 2 layers, the deep layer #2 Vicryl suture and subcutaneous tissue with 2-0 Dexon suture in buried interrupted fashion. Skin was closed with skin belkis. Leg was then cleaned, dried and a sterile dressing of Xeroform, 4 x 4s, sterile ABD pad and foam tape was applied. The patient then transferred to the recovery room in stable condition. The patient tolerated the procedure well with no complications. All needle and sponge counts were correct at the end of the operation. I attest to the content of the Intraoperative Record and any orders documented therein. Any exception s are noted below.
--- NOTE | 2018-06-07 09:27 | Anesthesiology Progress Note ---
Date of Service June 07, 2018 Anesthesia Post Procedure Vital Signs Vital Signs: Temp Pulse Pulse Resp BP Pulse Ox 06/07/18 09:05 36.7 C 62 17 127/57 L 98 06/07/18 09:00 66 17 118/59 L 99 06/07/18 08:50 66 14 136/84 100 06/07/18 08:40 69 19 128/76 100 06/07/18 08:30 68 19 144/83 H 100 06/07/18 08:24 36.7 C 73 16 139/75 99 06/07/18 05:29 36.8 C 56 L 18 194/93 H 96 Pain Intensity Left Hip: Pain Intensity: 0 Notes Mental Status: alert / awake / arousable and participated in evaluation Patient Amnestic to Procedure: Yes Nausea / Vomiting: adequately controlled Pain: adequately controlled Airway Patency, RR, SpO2: stable & adequate BP & HR: stable & adequate Hydration State: stable & adequate Anesthetic Complications: no major complications apparent
[2018-06-07] MEDS ORDERED: METOCLOPRAMIDE HCL INJ 5 MG/ML 2 ML VIAL IV PRN (09:39)
[2018-06-07] MEDS ORDERED: ALUMINUM/MAGNESIUM SUSP 30 ML UDC PO PRN (09:39)
[2018-06-07] MEDS ORDERED: MAGNESIUM HYDROXIDE SUSP 30 ML UDC PO PRN (09:39)
[2018-06-07] MEDS ORDERED: BISACODYL 10 MG SUPP PR PRN (09:39)
[2018-06-07] MEDS: hydroCHLOROthiazide 25 MG TAB PO SCH (11:28)
[2018-06-07] MEDS: SODIUM CHLORIDE 0.9% 1000ML 1,000 ML IV SCH ×2 (11:29→21:00)
[2018-06-07] MEDS: CYANOCOBALAMIN 500 MCG TABLET (VITAMIN B-12) PO SCH (11:29)
[2018-06-07] MEDS: MULTIVITAMIN TAB PO SCH (11:33)
[2018-06-07] MEDS: ASPIRIN 81 MG ECTAB PO SCH ×2 (11:33→20:54)
[2018-06-07] MEDS: DOCUSATE SODIUM 100 MG CAP PO SCH ×2 (11:33→20:58)
[2018-06-07] MEDS: KETOROLAC TROMETHAMINE 15 MG/ML VIAL IV SCH ×3 (11:34→22:34)
[2018-06-07] MEDS: ACETAMINOPHEN 500 MG TAB PO SCH ×2 (13:50→22:34)
[2018-06-07] MEDS ORDERED: TRANEXAMIC ACID 1,000 MG in 0.9 % SODIUM CHLORIDE 100 ML IV SCH (14:30)
[2018-06-07] MEDS: CEFAZOLIN 1000MG 1,000 MG/7.5 ML SYR IV SCH ×2 (15:07→22:34)
[2018-06-07] MEDS: FERROUS GLUCONATE 324 MG TAB PO SCH (17:10)
[2018-06-07] MEDS: MAGNESIUM OXIDE 400 MG TAB PO SCH (20:53)
[2018-06-07] MEDS: SENNA 8.6 MG TAB PO SCH (20:53)
[2018-06-07] MEDS: ESCITALOPRAM OXALATE 10 MG TAB PO SCH (20:54)
[2018-06-07] MEDS: CHOLECALCIFEROL 1,000 UNITS TAB PO SCH (20:54)
[2018-06-07] MEDS: SIMVASTATIN 20 MG TAB PO SCH (22:34)
[2018-06-08] MEDS: ACETAMINOPHEN 500 MG TAB PO SCH ×3 (05:16→22:40)
[2018-06-08] MEDS: KETOROLAC TROMETHAMINE 15 MG/ML VIAL IV SCH ×4 (05:16→22:40)
[2018-06-08 06:51] LABS: Basophils # (auto) 0.02 K/uL (0-0.2); Basophils % (auto) 0.3 %; Eosinophils # (auto) 0.16 K/uL (0-0.5); Eosinophils % (auto) 2.8 %; Hematocrit (blood only) 34.1 % (37-47); Hemoglobin 11.5 g/dL (12.0-16.0); Immature Granulocytes # (auto) 0.01 K/uL (0.00-0.02); Immature Granulocytes % (auto) 0.2 %; Lymphocytes # (auto) 1.21 K/uL (1.2-3.4); Lymphocytes % (auto) 21.2 %; Mean Corpuscular Hgb Conc 33.7 g/dL (32-36); Mean Corpuscular Volume 86.8 fL (80-100); Mean Platelet Volume 9.1 fL (7.4-10.4); Monocytes # (auto) 0.65 K/uL (0.11-0.59); Monocytes % (auto) 11.4 %; Neutrophils # (auto) 3.67 K/uL (1.4-6.5); Neutrophils % (auto) 64.1 %; Platelet Count 182 K/uL (130-400); RDW Coefficient of Variation 12.8 % (11.5-14.5); RDW Standard Deviation 40.8 fL (36.4-46.3); Red Blood Count 3.93 M/uL (4.2-5.4); White Blood Count 5.72 K/uL (4.8-10.8)
[2018-06-08 07:12] LABS: BUN Creatinine Ratio 25.2 (10-20); Calcium 8.4 mg/dl (8.5-10.1); Creatinine Clr Calc Pharmacy 83.6 ml/min; Est GFR (African American) 108.1; Est GFR (Non-African American) 93.3; Potassium 3.7 mmol/L (3.5-5.1)
[2018-06-08] MEDS ORDERED: NURSING DECISION MEDICATION ONE (07:39)
[2018-06-08] MEDS ORDERED: SODIUM CHLORIDE 0.65% NA SOLN 45 ML (OCEAN) PRN (07:47)
--- NOTE | 2018-06-08 08:26 | Anesthesiology Progress Note ---
Date of Service June 08, 2018 Anesthesia Post Procedure Vital Signs Vital Signs: Temp Pulse Pulse Pulse Resp BP Pulse Ox 06/08/18 07:20 36.5 C 76 18 150/84 H 95 06/08/18 03:25 36.6 C 66 16 129/75 99 06/08/18 00:25 16 97 06/08/18 00:14 14 98 06/07/18 23:28 36.8 C 70 14 136/78 98 06/07/18 15:56 36.3 C L 58 L 18 117/70 96 06/07/18 14:54 16 97 06/07/18 13:25 18 97 06/07/18 12:42 18 96 06/07/18 12:25 63 18 115/70 96 06/07/18 11:26 60 18 102/63 96 06/07/18 11:22 17 99 06/07/18 10:25 59 L 17 102/60 99 06/07/18 09:58 36.3 C L 60 15 106/68 98 06/07/18 09:25 36.3 C L 66 16 121/74 95 06/07/18 09:05 36.7 C 62 17 127/57 L 98 06/07/18 09:00 66 17 118/59 L 99 06/07/18 08:50 66 14 136/84 100 06/07/18 08:40 69 19 128/76 100 06/07/18 08:30 68 19 144/83 H 100 Pain Intensity Left Hip: Pain Intensity: 0 Notes Mental Status: alert / awake / arousable and participated in evaluation Patient Amnestic to Procedure: Yes Nausea / Vomiting: adequately controlled Pain: adequately controlled Airway Patency, RR, SpO2: stable & adequate BP & HR: stable & adequate Hydration State: stable & adequate Anesthetic Complications: Pt Satisfied with anesthetic care
[2018-06-08] MEDS: CYANOCOBALAMIN 500 MCG TABLET (VITAMIN B-12) PO SCH (08:36)
[2018-06-08] MEDS: ASPIRIN 81 MG ECTAB PO SCH ×2 (08:36→20:30)
[2018-06-08] MEDS: hydroCHLOROthiazide 25 MG TAB PO SCH (08:36)
[2018-06-08] MEDS: ATENOLOL 25 MG TABLET PO SCH (08:36)
[2018-06-08] MEDS: PANTOprazole 40 MG TAB PO SCH (08:37)
[2018-06-08] MEDS: FERROUS GLUCONATE 324 MG TAB PO SCH ×2 (08:37→17:42)
[2018-06-08] MEDS: MULTIVITAMIN TAB PO SCH (08:37)
[2018-06-08] MEDS: DOCUSATE SODIUM 100 MG CAP PO SCH ×2 (08:40→20:30)
[2018-06-08] MEDS: TRAMADOL HCL 50 MG TABLET PO PRN ×3 (10:12→20:35)
--- NOTE | 2018-06-08 11:27 | Progress Note ---
DATE: 06/08/2018 SUBJECTIVE: 78-year-old female postop day 1 from a left hip replacement. She is doing pretty well. A little bit sore after therapy and a little bit wiped out. No chest pain or shortness of breath. Not feeling dizzy or lightheaded. OBJECTIVE: VITAL SIGNS: Temperature 36.7. Vital signs stable. PHYSICAL EXAMINATION: GENERAL: Reveals a healthy pleasant elderly female. She is lying in bed and was resting and I had to really kind of wake her. She is awake, alert and oriented. LUNGS: Clear to auscultation. HEART: Has regular rate and rhythm. ABDOMEN: Soft, nontender, nondistended. EXTREMITIES: Grossly neurovascularly intact except as follows: Examination of left hip reveals the leg to be well aligned. Hip is located. Dressing is clean, dry and intact. Thigh is soft and supple. She is neurologically intact. She can dorsiflex and plantarflex her foot appropriately. LABORATORY DATA: Hemoglobin 11.5, hematocrit 34.1. Electrolytes are stable. ASSESSMENT: 78-year-old female postop day 1 from a left hip replacement, doing quite well. Pain is controlled. Hip is located. She is neurologically intact. PLAN: 1. DVT prophylaxis including thigh-high TEDs, SCDs, and aspirin twice a day. 2. PT/OT. Weight bear as tolerated. Left total hip protocol. 3. Pain control, doing well with current pain regimen. 4. Disposition: She is planning to be discharged to home with home health once adequately recovered.
[2018-06-08] MEDS: ESCITALOPRAM OXALATE 10 MG TAB PO SCH (20:30)
[2018-06-08] MEDS: MAGNESIUM OXIDE 400 MG TAB PO SCH (20:31)
[2018-06-08] MEDS: SIMVASTATIN 20 MG TAB PO SCH (20:32)
[2018-06-08] MEDS: SENNA 8.6 MG TAB PO SCH (20:32)
[2018-06-08] MEDS: CHOLECALCIFEROL 1,000 UNITS TAB PO SCH (20:32)
[2018-06-09] MEDS: ACETAMINOPHEN 500 MG TAB PO SCH (05:23)
[2018-06-09] MEDS: KETOROLAC TROMETHAMINE 15 MG/ML VIAL IV SCH (05:23)
--- NOTE | 2018-06-09 07:28 | Progress Note ---
DATE: 06/09/2018 SUBJECTIVE: An 78-year-old female postop day 2 from a left hip replacement. She is doing pretty well. Pain is controlled. No chest pain or shortness of breath. Not feeling dizzy or lightheaded. OBJECTIVE: VITAL SIGNS: Temperature 36.6. Vital signs stable. PHYSICAL EXAMINATION: GENERAL: Reveals a pleasant elderly female. She is lying in bed this morning and looks pretty comfortable. EXTREMITIES: Examination of the left leg reveals the leg to be well aligned. Incision is clean, dry and intact. No significant drainage. Thigh is soft and supple. She is neurologically intact. Hip is located. ASSESSMENT: An 78-year-old female postop day 2 from left hip replacement, doing well. Pain is controlled. PLAN: 1. DVT prophylaxis including thigh high TEDs, SCDs, and aspirin twice a day. 2. PT/OT. Weight bear as tolerated. Left total hip protocol. 3. Pain control. Doing well with current pain regimen. 4. Disposition: Plan to discharge to home with some home health later today.
[2018-06-09] MEDS: TRAMADOL HCL 50 MG TABLET PO PRN (08:59)
[2018-06-09] MEDS: MULTIVITAMIN TAB PO SCH (09:00)
[2018-06-09] MEDS: PANTOprazole 40 MG TAB PO SCH (09:00)
[2018-06-09] MEDS: ATENOLOL 25 MG TABLET PO SCH (09:00)
[2018-06-09] MEDS: CYANOCOBALAMIN 500 MCG TABLET (VITAMIN B-12) PO SCH (09:00)
[2018-06-09] MEDS: FERROUS GLUCONATE 324 MG TAB PO SCH (09:01)
[2018-06-09] MEDS: hydroCHLOROthiazide 25 MG TAB PO SCH (09:01)
[2018-06-09] MEDS: ASPIRIN 81 MG ECTAB PO SCH (09:32)
[2018-06-09] MEDS: DOCUSATE SODIUM 100 MG CAP PO SCH (09:32)
--- NOTE | 2018-06-15 14:43 | Discharge Summary ---
ADMITTING PHYSICIAN AND SURGEON: Dr. Ruddy Plunkett. ADMITTING DIAGNOSIS: Left hip degenerative joint disease. SURGERY PERFORMED: Left total hip arthroplasty. 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 CONSULTS: None obtained. HISTORY AND PHYSICAL EXAMINATION: Well documented in the patient's chart. HOSPITAL COURSE: The patient was admitted on 06/07/2018 underwent total hip arthroplasty, tolerated the procedure well without complications. She was transferred to the PACU postoperatively and later to the orthopedic floor for further care. She was given Ancef for antibiotic prophylaxis, LUCERO stockings, SCDs and aspirin for DVT prophylaxis. Hemoglobin, hematocrit and vital signs were monitored during her hospital stay and remained stable, did not require any blood transfusions. There were no complications. By postoperative day 2, she was tolerating a regular diet, pain was controlled with oral pain medicine. She was participating in physical therapy. On postop day 2, she was discharged home, set up with home health services. She was given printed discharge instructions including new prescriptions for extra strength Tylenol, aspirin and tramadol. Continue her home medications with the exception of her home doses of Tylenol, which were changed. Continue physical therapy, weightbearing as tolerated, LUCERO stockings, total hip precautions. Followup in approximately 2 weeks postoperatively or sooner if there are any problems or concerns.
== END 2018-06-09 12:08 | disposition home health service (06) | DRG 470 ==
LOC: ASU 04:45 → 3E 08:25